=== PATIENT | male | born 2000 | race Caucasian/White ===

== ENCOUNTER 2024-03-04 18:09 | Emergency (ER) | payer MEDICAID ==
[~2024-03-04] VITALS: Ht 175.3 cm; Wt 79.0 kg
[2024-03-04 18:19] VITALS: BP 142/82; PULSE 100; RESP 18; TEMP 98.6; O2SAT 99
== END 2024-03-04 22:19 | disposition home or self-care (01) ==
LOC: ER 18:09
DX: S10.91XA Abrasion of unspecified part of neck, initial encounter (principal); Y08.89XA Assault by other specified means, initial encounter; Y93.89 Activity, other specified; Y92.89 Other specified places as the place of occurrence of the external cause; Y99.8 Other external cause status
CPT/HCPCS: 99284